=== PATIENT | male | born 2000 | race Caucasian/White ===

== ENCOUNTER 2024-04-06 15:39 | Emergency (ER) | payer MEDICAID ==
[~2024-04-06] VITALS: Ht 170.2 cm; Wt 72.6 kg
[2024-04-06 16:05] VITALS: BP 165/99; PULSE 110; RESP 18; TEMP 98.3; O2SAT 98
--- NOTE | 2024-04-06 16:12 | NUR ---
TO ER BED 11
[2024-04-06] MEDS: NACL 0.9% 1,000 ML IV ONE (17:09)
--- NOTE | 2024-04-06 17:10 | NUR ---
PATIENT PRESENTS TO ED WITH HEMATURIA . PT STATES THAT THEY HAD FLU LIKE SYMPTOMS LAST WEEK, AND THEN STARTED BLEEDING [facility] URINATING LASTNIGHT. DENIES D PT STATES THEY HAD +N/+V; SKIN IS PINK/WARM/DRY PT HAS PETECHIA LIKE RASH ON HIS HAND AND CHEST,HAS BRUSING ON HIS ARM AND LEGS; AAOX4 WITH EVEN AND STEADY GAIT; LUNGS CLEAR BL; HR EVEN AND REGULAR; PT DENIES ANY FEVER, CP, SOB, OR COUGH AT THIS TIME; PATIENT STATES PAIN OF 0/10 AT THIS TIME; PATIENT POSITIONED FOR COMFORT; HOB ELEVATED; BEDRAILS UP X2; BED DOWN. ER MD MADE AWARE OF PT STATUS. CALL LIGHT WITHIN REACH NKA
[2024-04-06 17:33] LABS: CALCIUM 9.2 mg/dL (8.5-10.1); CARBON DIOXIDE 27.1 mmol/L (21-32); CREATININE 0.9 mg/dL (0.6-1.3); POTASSIUM 3.1 mmol/L (3.5-5.1)
[2024-04-06 17:42] LABS: INR 1.28 (0.8-1.2); PARTIAL THROMBOPLASTIN TIME 23.6 secs (22-35.6); PROTHROMBIN TIME 13.2 secs (10.8-13.4)
[2024-04-06 18:03] LABS: HEMATOCRIT 37.2 % (36-52); HEMOGLOBIN 12.5 g/dL (12.0-18.0); MEAN CORPUSCULAR HEMOGLOBIN 29 pg (27-31); MEAN CORPUSCULAR HGB CONC 34 g/dL (33-37); MEAN CORPUSCULAR VOLUME 85.8 fL (80-94); RED BLOOD CELL COUNT(AUTO) 4.34 MIL/uL (4.20-6.10); RED CELL DISTRIBUTION WIDTH 15.2 % (11.6-13.7); RETICULOCYTE COUNT 0.4 % (0.5-1.5)
[2024-04-06 18:08] LABS: WHITE BLOOD COUNT (AUTO) 85.1 K/uL (4.8-10.8)
[2024-04-06 18:09] LABS: PLATELET COUNT (AUTO) 9 K/uL (140-450)
[2024-04-06 18:15] LABS: AMPHETAMINE, URINE NEGATIVE ng/ml (NEG <=1000); BARBITURATE, URINE NEGATIVE ng/ml (NEG <=200); BENZODIAZEPINE, URINE NEGATIVE ng/mL (NEG <=200); CANNABINOID, URINE POSITIVE ng/mL (NEG <=50); COCAINE, URINE NEGATIVE ng/mL (NEG <=300)
[2024-04-06 18:16] LABS: OPIATE, URINE NEGATIVE ng/mL (NEG <=2000); PHENCYCLIDINE SCREEN,URINE NEGATIVE ng/mL (NEG <=25)
[2024-04-06 18:54] LABS: NUCLEATED RED BLOOD CELLS 0.1 /100WBC (0.0-0.0)
[2024-04-06 18:59] LABS: ALBUMIN 3.8 g/dL (3.4-5.0); BILIRUBIN,DIRECT 0.3 mg/dL (0.0-0.3); TOTAL BILIRUBIN 0.8 mg/dL (0.0-1.0); TOTAL PROTEIN, SERUM 8.3 g/dL (6.4-8.2)
[2024-04-06 19:03] LABS: BASOPHILS % (MANUAL) 0 % (0-2); EOSINOPHILS % (MANUAL) 0 % (0-4); LYMPHOCYTES % (MANUAL) 33 % (20-46); MONOCYTES % (MANUAL) 64 % (5-12)
[2024-04-06 19:04] LABS: ANISOCYTOSIS 1+
[2024-04-06 19:06] LABS: OVALOCYTES 1+
[2024-04-06 19:07] LABS: SMUDGE CELLS 2
--- NOTE | 2024-04-06 19:07 | NUR ---
Patient to be transferred to [facility] ED. Is being transferred due to HIGHER LEVEL OF CARE. Receiving facility has accepting physician and available space. ER physician has signed transfer form. Patient or responsible constitution party has agreed to transfer and signed form. Patient belongings inventoried and will be sent with patient. Copy of nursing notes, lab reports, EKG, Physicians Orders and X-rays to be sent with patient. Report called to NATALYA FRYE at receiving facility. [facility] ambulance service has been called for transfer. ETA is 20MINS.
[2024-04-06 19:23] LABS: BILIRUBIN,URINE NEGATIVE (NEGATIVE); BLOOD, URINE 3+ (NEGATIVE); COLOR,URINE YELLOW (YELLOW); LEUKOCYTE ESTERASE ,URINE TRACE (NEGATIVE); NITRITE, URINE NEGATIVE (NEGATIVE); PROTEIN,URINE 2+ (NEGATIVE); UGLUCOSE NEGATIVE (NEGATIVE)
[2024-04-06 19:28] VITALS: BP 165/92; PULSE 106; RESP 22; TEMP 99.7; O2SAT 96
[2024-04-06 19:33] LABS: APPEARANCE,URINE SLIGHTLY BLOODY (CLEAR); BACTERIA,URINE 1+ /HPF (None Seen); MUCUS,URINE 1+ /LPF (None Seen); RBC,URINE TOO NUMEROUS TO COUN /HPF (0-5); SQUAMOUS EPITHELIAL CELL,UR 0-3 (FEW) /LPF (0-3 (FEW)); WBC,URINE 16-25 (MOD) /HPF (0-5)
--- NOTE | 2024-04-06 20:23 | NUR ---
CALLED [facility], SPOKE WITH AMARJIT. POSITIVE STREP A REPORTED. WILL FAX RESULT TO [phone]
== END 2024-04-06 19:07 | disposition short-term general hospital (02) ==
LOC: MED 15:39
DX: R31.0 Gross hematuria (principal); R79.1 Abnormal coagulation profile; D69.6 Thrombocytopenia, unspecified
CPT/HCPCS: 36415; 71045; 80048; 80076; 80305; 81001; 82553; 83010; 84484; 85025; 85045; 85379; 85384; 85610; 85730; 86886; 86900; 86901; 87081; 87086; 87491; 93005; 96360; 99291; J7030; Q0092; 87186